=== PATIENT | female | born 1990 | race Caucasian/White ===

== ENCOUNTER 2023-07-06 16:22 | Emergency (ER) | payer OTHER ==
[2023-07-06 16:41] VITALS: O2SAT 100
--- NOTE | 2023-07-06 18:02 | Ultrasound Report ---
PROCEDURE: OB 1st Trimester INDICATIONS: concern for ectopic OUTSIDE/PRIOR DATING DATA: Last menstrual period (LMP): Unknown. LMP-based estimated date of delivery (POP): Unknown. First dating scan (date and location): 07/06/2023. Estimated date of delivery (POP) from first dating scan: 12/03/2023. TECHNIQUE: Real-time scanning was performed of the fetus and maternal pelvic organs, with image documentation. COMPARISON: None. General: A single living intrauterine gestation is present. Presentation: Vertex Placenta: Placental position is anterior, without previa. Heterogeneous structure in the placenta me asuring 2.5 x 0.9 x 1.5 cm. heart rate: 143 beats per minute. Maternal cervical canal: 5.7 cm long; normal length is 2.5 cm or more. biometrics: Biparietal diameter: 4.1 cm, 18 weeks 3 days Head circumference: 15.8 cm, 18 weeks 5 days Abdominal circumference: 12.7 cm, 18 weeks 2 days Femur length: 2.8 cm, 18 weeks 4 days Estimated gestational age from initial scan: 18 weeks 2 days Composite gestational age from present scan: 18 weeks 2 days Measurement variability in biometric dating: +/- 10 days from 12-20 weeks gestation, +/- 2 weeks from 20-30 weeks gestation, +/- 3 weeks at 30 weeks gestation or more. Other: Not applicable. Maternal organs: Right ovarian corpus pseudocyst. IMPRESSION: 1.Single live intrauterine consistent with 19 weeks and 2 days. 2.Heterogeneous structure in the placenta measuring 2.5 x 0.9 x 1.5 cm. Differential includes placent al hayes, small hemorrhage, placental abruption is not entirely excluded and short-term follow-up ultr asound in one to 2 weeks is recommended. Reviewed by: Royal Valdes MD on 07/06/2023 6:00 PM PST Approved by: Royal Valdes MD on 07/06/2023 6:00 PM PST Station ID: [id number]
[2023-07-06 18:11] LABS: BILIRUBIN,URINE NEGATIVE (NEGATIVE); GLUCOSE, URINE (UA) NEGATIVE (NEGATIVE); KETONES,URINE (UA) NEGATIVE (NEGATIVE); LEUKOCYTE ESTERASE, URINE TRACE (NEGATIVE); NITRITE,URINE NEGATIVE (NEGATIVE); OCCULT BLOOD,URINE NEGATIVE (NEGATIVE); PH,URINE 6.5 PH (5.0-7.5); PROTEIN,URINE NEGATIVE (NEGATIVE); UROBILINOGEN,URINE 0.2 (NORMAL) E.U./dL (NORMAL)
[2023-07-06 18:12] LABS: BASOPHILS % (AUTO) 0.4 %; EOSINOPHILS # (AUTO) 0.1 10^3/uL (0.0-0.7); EOSINOPHILS % (AUTO) 1.1 %; HCT - HEMATOCRIT 34.8 % (37.0-47.0); HGB - HEMOGLOBIN 10.9 g/dL (12.0-16.0); LYMPHOCYTES # (AUTO) 1.6 10^3/uL (1.5-3.5); LYMPHOCYTES % (AUTO) 22.4 %; MEAN CORPUSCULAR HEMOGLOBIN 24.8 pg (27.0-31.0); MEAN CORPUSCULAR HGB CONC 31.3 g/dL (32.0-36.0); MEAN CORPUSCULAR VOLUME 79.1 fL (81.0-99.0); MEAN PLATELET VOLUME 9.3 fL (7.9-10.8); MONOCYTES # (AUTO) 0.3 10^3/uL (0.0-1.0); MONOCYTES % (AUTO) 3.9 %; NEUTROPHILS # (AUTO) 5.1 10^3/uL (1.5-6.6); NEUTROPHILS % (AUTO) 71.8 %; PLT - PLATELET COUNT 300 10^3/uL (130-450); RED CELL DISTRIBUTION WIDTH 16.6 % (12.0-15.0); WHITE BLOOD COUNT 7.1 x10^3/uL (4.8-10.8)
[2023-07-06 18:15] LABS: CLARITY,URINE CLEAR (CLEAR)
[2023-07-06 18:18] LABS: BACTERIA,URINE Few /HPF (None Seen); RBC,URINE 0-5 /HPF (0-5); SQUAMOUS EPITHELIAL CELL,UR MOD Squamous (<= Few); WBC,URINE 0-3 /HPF (0-5)
[2023-07-06 18:20] LABS: MAGNESIUM 1.7 mg/dL (1.7-2.3)
[2023-07-06 18:26] LABS: ALBUMIN 4.6 g/dL (3.2-5.5); ALBUMIN/GLOBULIN RATIO 1.2 (1.0-2.2); BILIRUBIN,TOTAL 0.4 mg/dL (0.2-1.0); CALCIUM 10.1 mg/dL (8.5-10.3); CREATININE 0.6 mg/dL (0.6-1.3); POTASSIUM 3.4 mmol/L (3.5-4.5); TOTAL PROTEIN 8.5 g/dL (6.4-8.9)
--- NOTE | 2023-07-06 18:57 | ED Physician Documentation ---
PD HPI ABD PAIN - Stated complaint Stated Complaint: - Chief complaint Chief Complaint: Abd Pain - Additional information Additional information: 32-year-old female presents originally to walk-in clinic for vaginal bleeding and just recently found out that she is . Patient is G4, P2 she did not know she was she said that she had absolutely no signs or symptoms that she was after the vaginal bleeding she decided to take a test because her periods have always been inconsistent after miscarriage that occurred about a year ago. She found out 2 days ago that she was and after she noticed a scant amount of vaginal bleeding and very subtle abdominal pain she decided to go to the walk-in clinic. They sent her to the emergency department to rule out possible ectopic . PD PAST MEDICAL HISTORY - Past Medical History Past Medical History: No Cardiovascular: None Respiratory: None Neuro: None Endocrine/Autoimmune: None GI: None PRESSURE CONTROLLER: None : None HEENT: None Psych: None Musculoskeletal: None Derm: None - Past Surgical History Past Surgical History: Yes /PRESSURE CONTROLLER: section - Present Medications Home Medications: Ambulatory Orders Medication Instructions Recorded Confirmed cephALEXin [Keflex] 500 mg PO Q6H 4 Days #28 cap 07/06/23 - Allergies Allergies/Adverse Reactions: Allergies Allergy/AdvReac Type Severity Reaction Status Date / Time No Known Drug Allergies Allergy Verified 07/06/23 16:36 - Social History Does the pt smoke?: No Smoking Status: Never smoker Does the pt drink ETOH?: Yes Does the pt have substance abuse?: No - Immunizations Immunizations are current?: Yes - POLST Patient has POLST: No PD ED PE NORMAL - Vitals Vital signs reviewed: Yes - General General: Alert and oriented X 3, No acute distress, Well developed/nourished - Abdomen Abdomen: Normal bowel sounds, Soft, Non tender, Non distended, No organomegaly - Back Back: No CVA TTP - Derm Derm: Normal color, Warm and dry, No rash - Psych Psych: Normal mood Results - Vitals Vitals: Oxygen O2 Source Room air - Labs Labs: Laboratory Tests 07/06/23 07/06/23 07/06/23 16:30 18:05 18:05 WBC 7.1 RBC 4.40 Hgb 10.9 L Hct 34.8 L MCV 79.1 L MCH 24.8 L MCHC 31.3 L RDW 16.6 H Plt Count 300 MPV 9.3 Neut # (Auto) 5.1 Lymph # (Auto) 1.6 Terrell # (Auto) 0.3 Eos # (Auto) 0.1 Baso # (Auto) 0.0 Absolute Nucleated RBC 0.00 Nucleated RBC % 0.0 Sodium 136 Potassium 3.4 L Chloride 101 Carbon Dioxide 24 Anion Gap 11.0 BUN 7 Creatinine 0.6 Estimated GFR (MDRD) 117 Glucose 93 Calcium 10.1 Magnesium 1.7 Total Bilirubin 0.4 AST 13 ALT 9 L Alkaline Phosphatase 61 Total Protein 8.5 Albumin 4.6 Globulin 3.9 Albumin/Globulin Ratio 1.2 Urine Color YELLOW Urine Clarity CLEAR Urine pH 6.5 Ur Specific Ephraim <=1.005 Urine Protein NEGATIVE Urine Glucose (UA) NEGATIVE Urine Ketones NEGATIVE Urine Occult Blood NEGATIVE Urine Nitrite NEGATIVE Urine Bilirubin NEGATIVE Urine Urobilinogen 0.2 (NORMAL) Ur Leukocyte Esterase TRACE H Urine RBC 0-5 Urine WBC 0-3 Ur Squamous Epith Cells MOD Squamous H Urine Bacteria Few Urine Mucus Ur Microscopic Review INDICATED Urine Culture Comments NOT INDICATED 07/06/23 19:30 WBC RBC Hgb Hct MCV MCH MCHC RDW Plt Count MPV Neut # (Auto) Lymph # (Auto) Terrell # (Auto) Eos # (Auto) Baso # (Auto) Absolute Nucleated RBC Nucleated RBC % Sodium Potassium Chloride Carbon Dioxide Anion Gap BUN Creatinine Estimated GFR (MDRD) Glucose Calcium Magnesium Total Bilirubin AST ALT Alkaline Phosphatase Total Protein Albumin Globulin Albumin/Globulin Ratio Urine Color YELLOW Urine Clarity CLEAR Urine pH 6.0 Ur Specific Ephraim 1.025 Urine Protein NEGATIVE Urine Glucose (UA) NEGATIVE Urine Ketones NEGATIVE Urine Occult Blood NEGATIVE Urine Nitrite NEGATIVE Urine Bilirubin NEGATIVE Urine Urobilinogen 0.2 (NORMAL) Ur Leukocyte Esterase SMALL H Urine RBC 0-5 Urine WBC 6-10 H Ur Squamous Epith Cells MOD Squamous H Urine Bacteria Moderate H Urine Mucus Few Strands Ur Microscopic Review Urine Culture Comments - Rads (name of study) OB US Relevant Findings:: Final report received, EMP independent interpretation of test, Other (Single living intrauterine , 19 weeks and 2 days.) PD Medical Decision Making - ED course ED course: 32-year-old female presents emergency department for concerns of possible ectopic . Ultrasound complete and reveals Single living intrauterine , 19 weeks and 2 days. Heterogenous structure of the placenta Labs are complete hematology reveals mild anemia, hemoglobin 10.9 hematocrit 34.8. Chemistry complete which reveals mild hypokalemia, potassium 3.4, 20 mill equivalents of p.o. potassium administered in the emergency department. Urinalysis was collected twice due to the first time having moderate amount of squamous cells and positive leukocytes, repeat urinalysis still positive for leukocytes still positive for moderate squamous cells because she is we decided to go ahead and treat her for asymptomatic bacteriuria. Prescription of Keflex sent to her preferred pharmacy. Urine was sent for cultures. Patient told to follow-up with [employer] and also advised to have repeat ultrasound done in 1 to 2 weeks for further evaluation of the atypical placenta. She was told to not insert anything in her vagina and no exertional exercise and to come back to the emergency department if she is having any worsening bleeding, worsening abdominal pain.patient given strict return precautions. Departure - Departure Disposition: 01 Home, Self Care Clinical Impression: Threatened Qualifiers: Weeks of gestation: 19 weeks Qualified Code(s): Z3A.19 - 19 weeks gestation of Condition: Good Instructions: Care Prescriptions: cephALEXin [Keflex] 500 mg PO Q6H 4 Days #28 cap Comments: Thank you for trusting us with your care. We have found that you are 19 weeks and 2 days according to her ultrasound results. Your placenta does have some sort of abnormality on it concerning for a possible bleed as we discussed.. See results below. It is very important that you have a repeat ultrasound in 1 to 2 weeksPer recommendation of radiology. As we discussed do not insert anything in your vagina for intercourse. I would avoid any strenuous activity or exercise no riding bikes no exercise. Please come back to the emergency department if you have any worsening vaginal bleeding, abdominal cramping, or any other concerning symptoms. Ultrasound results. Single live intrauterine consistent with 19 weeks and 2 days. 2.Heterogeneous structure in the placenta measuring 2.5 x 0.9 x 1.5 cm. Differential includes placental hayes, small hemorrhage, placental abruption is not entirely excluded and short-term follow-up ultrasound in one to 2 weeks is recommended. I will call you with results of urinalysis to tell you if you did start any antibiotics or not. Forms: PCP List Discharge Date/Time: 07/06/23 19:47
[2023-07-06] MEDS: POTASSIUM CHLORIDE 20 MEQ TABLET PO STA (19:29)
[2023-07-06 19:45] VITALS: BP 128/91
[2023-07-06 19:48] LABS: BILIRUBIN,URINE NEGATIVE (NEGATIVE); GLUCOSE, URINE (UA) NEGATIVE (NEGATIVE); KETONES,URINE (UA) NEGATIVE (NEGATIVE); LEUKOCYTE ESTERASE, URINE SMALL (NEGATIVE); NITRITE,URINE NEGATIVE (NEGATIVE); OCCULT BLOOD,URINE NEGATIVE (NEGATIVE); PROTEIN,URINE NEGATIVE (NEGATIVE); UROBILINOGEN,URINE 0.2 (NORMAL) E.U./dL (NORMAL)
[2023-07-06 19:50] LABS: CLARITY,URINE CLEAR (CLEAR)
[2023-07-06 19:57] LABS: BACTERIA,URINE Moderate /HPF (None Seen); MUCUS,URINE Few Strands; RBC,URINE 0-5 /HPF (0-5); SQUAMOUS EPITHELIAL CELL,UR MOD Squamous (<= Few)
== END 2023-07-06 19:47 | disposition home or self-care (01) ==
LOC: ED 16:22
DX: O20.0 Threatened abortion (principal); O99.891 Other specified diseases and conditions complicating pregnancy; E87.6 Hypokalemia; O28.8 Other abnormal findings on antenatal screening of mother; O43.92 Unspecified placental disorder, second trimester; Z3A.19 19 weeks gestation of pregnancy
CPT/HCPCS: 36415; 76801; 80053; 81001; 83735; 85025; 99284; A9270; 81003; 87086